=== PATIENT | female | born 1945 | race Caucasian/White ===

== ENCOUNTER 2020-12-03 20:08 | Emergency (ER) | payer OTHER ==
[~2020-12-03 20:08] MED LIST: ADVAIR HFA 45-218 GM PO; ALEVE220 M1 PO; ASPIRIN EC81 MG PO; CALCIUM CARBON650 MG PO; COQ-10100 MG PO; FAMCICLOVIR500 MG PO; FLONASE ALLERG9.9 ML; LEVO-T25 MCG PO; LIPITOR20 M1 PO; NORVASC10 MG PO; PROTONIX 40MG T40 MG PO; PROZAC40 MG PO; TENORMIN50 MG PO; VITAMIN D2000 UNI1 PO; VITAMIN E PO; XYZAL5 MG PO; ZESTORETIC 20-1 EACH PO
[2020-12-03 20:31] LABS: BILIRUBIN 2+ mg/dL (NEGATIVE); BLOOD 3+ Ery/uL (NEGATIVE); CLARITY CLOUDY (CLEAR); COLOR BROWN (YELLOW); GLUCOSE (U) NORMAL (NORMAL); LEUKOCYTES 2+ Leu/uL (NEGATIVE); NITRITE POSITIVE (NEGATIVE); PROTEIN 3+ mg/dL (NEGATIVE); SPECIFIC GRAVITY 1.025 (1.001-1.030); URINARY RBC TNTC; pH 6.5 (5.0-9.0)
[2020-12-03 20:32] LABS: BACTERIA 2+; SQUAMOUS EPITHELIAL CELLS RARE
[2020-12-03 21:06] LABS: BASOPHIL 0.2 % (0-2); EOSINOPHIL 0.9 % (0-7); HCT 42.2 % (37.0-47.0); HGB 14.8 g/dl (12.5-16.0); MCH 34.3 pg (25.0-31.0); MCHC 35.1 g/dL (32.0-36.0); MCV 97.7 fL (78.0-100.0); MPV 10.6 fL (6.0-9.5); NEUTROPHIL 83.5 % (41-80); NRBC 0; PLT 239 K/uL (150-400); RBC 4.32 M/uL (4.20-5.40); RDW 12.6 % (11.5-14.0); WBC 18.3 K/uL (4.0-10.5)
[2020-12-03 21:33] LABS: ALBUMIN 3.9 g/dL (3.4-5.0); BILIRUBIN - TOTAL 0.5 mg/dL (0.2-1.0); BUN/CREAT RATIO (CALC) 19.5 RATIO; CREATININE 0.82 mg/dL (0.51-0.95); GLOBULIN (CALCULATION) 2.8 g/dL; POTASSIUM 4.3 mmol/L (3.5-5.1); TOTAL PROTEIN 6.7 g/dL (6.4-8.2)
[2020-12-03] MEDS ORDERED: CEFDINIR300 M1 PO (23:02)
[2020-12-03] MEDS ORDERED: ONDANSETRON ODT4 MG PO (23:02)
== END 2020-12-03 23:00 | disposition home or self-care (01) ==
LOC: FER 20:08
PROVIDERS: Emergency Medicine
DX: N39.0 Urinary tract infection, site not specified (principal); R31.9 Hematuria, unspecified; F17.210 Nicotine dependence, cigarettes, uncomplicated; Z88.1 Allergy status to other antibiotic agents; Z88.0 Allergy status to penicillin; Z88.8 Allergy status to other drugs, medicaments and biological substances; Z90.49 Acquired absence of other specified parts of digestive tract
CPT/HCPCS: 36415; 80053; 81001; 83605; 85025; 87076; 87088; 87186; J0696; J1170; J2405